=== PATIENT | male | born 1950 | race Caucasian/White ===

== ENCOUNTER → 2016-11-28 | Outpatient (REF) ==
[~2016-11-28] MED LIST: ASPI325T6 PO; ASPIRIN 81M81 MG/TA2 PO; ASPIRIN E.C. 8181 MG PO; FOLIC ACID 40400 MCG PO; HCTZ 25MG TAB25 MG PO; IRON325 M1 PO; NORCO 325 MG-7.1 TAB PO; POLYCITRA PO; PRINIVIL20 MG PO; ROXICODONE 55 MG/TAB PO; Senokot-S PO; [UNRECOGNIZED DRUG - OTHER] PO
== END ==
LOC: WSOH 16:00
DX: Z02.89 Encounter for other administrative examinations (principal)

== ENCOUNTER → 2018-01-02 | Outpatient (CLI) | payer BC | LOC: COL.RAD 07:51 | DX: M25.551 Pain in right hip (principal) | CPT/HCPCS: J3301; Q9967 ==

== ENCOUNTER → 2018-01-22 | Outpatient (CLI) | payer BC | LOC: COL.RAD 09:21 | DX: M25.551 Pain in right hip (principal); Z96.651 Presence of right artificial knee joint | CPT/HCPCS: A9503 ==

== ENCOUNTER → 2020-03-08 | Outpatient (CLI) | payer BC | LOC: COL.CARD 11:08 | DX: I10 Essential (primary) hypertension (principal) ==

== ENCOUNTER → 2021-01-27 | Outpatient (CLI) | payer BC | LOC: COL.RAD 07:26 | DX: M25.551 Pain in right hip (principal) | CPT/HCPCS: J3301; Q9967 ==

== ENCOUNTER → 2022-05-18 | Outpatient (CLI) | payer MEDICARE, BC ==
[~2022-05-18] MED LIST changes: +CARDIZEM CD 24240 MG PO; +COZAAR100 MG PO; +HYTRIN 2MG CAPSU2 MG PO; +SINEMET 25/101 UDTAB PO
== END ==
LOC: COL.RAD 13:19
DX: N20.0 Calculus of kidney (principal); M47.819 Spondylosis without myelopathy or radiculopathy, site unspecified; M16.0 Bilateral primary osteoarthritis of hip; R19.7 Diarrhea, unspecified; R14.3 Flatulence; R19.12 Hyperactive bowel sounds; D64.9 Anemia, unspecified; R09.89 Other specified symptoms and signs involving the circulatory and respiratory systems
CPT/HCPCS: Q9967

== ENCOUNTER 2023-10-26 17:37 | Emergency (ER) | payer MEDICARE, BC ==
[~2023-10-26] VITALS: Ht 172.7 cm; Wt 78.6 kg
[2023-10-26 17:45] VITALS: TEMP 98.4
[2023-10-26 18:34] LABS: BASO % 0.4 % (0.0-2.0); EOS % 0.4 % (0.0-4.0); GRAN # 5.6 K/mm3 (1.4-6.5); GRAN % 72.9 % (42.2-75.2); HEMATOCRIT 36.9 % (42.0-52.0); HEMOGLOBIN 12.7 g/dl (13.5-18.0); LYMPH # 1.5 K/mm3 (1.2-3.4); MEAN CELL VOLUME 92 fl (80.0-100.0); MEAN CORPUSCULAR HEMOGLOBIN 32 pg (27-31); MEAN CORPUSCULAR HGB CONC 34 g/dl (33.0-37.0); MEAN PLATELET VOLUME 9.9 fl (7.4-10.4); MONO # 0.5 K/mm3 (0.1-0.6); PLATELET COUNT 224 K/mm3 (130-400); RED BLOOD COUNT 4.03 M/mm3 (4.20-5.60); REDCELL DISTRIBUTION WIDTH-CV 11.8 % (11.5-14.5)
[2023-10-26 19:01] LABS: ALBUMIN 4.4 g/dL (3.4-4.8); ALKALINE PHOSPHATASE 107 U/L (40-150); ANION GAP 11 mmol/L (7-16); AST,SGOT 18 U/L (5-34); BILIRUBIN,TOTAL 0.7 mg/dL (0.2-1.2); BLOOD UREA NITROGEN 26 mg/dL (8-26); CALCIUM 9.6 mg/dL (8.4-10.2); CHLORIDE 114 mEq/L (98-107); CREATININE, serum 1.43 mg/dL (0.72-1.25); GLUCOSE 130 mg/dL (70-99); POTASSIUM 3.9 mEq/L (3.5-4.5); SODIUM 142 mEq/L (136-145); TOTAL PROTEIN 7.2 g/dl (6.2-8.1)
[2023-10-26 19:05] LABS: ALANINE AMINOTRANSFERASE < 6 U/L (0-55)
[2023-10-26 19:07] LABS: TROPONIN-I < 0.010 ng/mL (0.00-0.033)
[2023-10-26 19:37] VITALS: BP 127/69; PULSE 60
== END 2023-10-26 19:42 | disposition home or self-care (01) ==
LOC: COL.ER 17:37
PROVIDERS: Physician Assistant
DX: R07.2 Precordial pain (principal); Z79.899 Other long term (current) drug therapy; Z87.891 Personal history of nicotine dependence